=== PATIENT | male | born 1955 | race Two or more races ===

== ENCOUNTER 2024-08-24 14:13 | Emergency (ER) | payer OTHER ==
[~2024-08-24] VITALS: Ht 167.6 cm; Wt 75.3 kg
[2024-08-24 15:09] VITALS: BP 140/77; O2SAT 99
[2024-08-24] MEDS ORDERED: DIPHENHYDRAMINE HCL 50 MG/ML VIAL 1ML IM ONE (16:30)
[2024-08-24] MEDS ORDERED: METHYLPREDNISOLONE SOD SUCC 125 MG VIAL IM ONE (16:30)
[2024-08-24 16:51] LABS: HEMATOCRIT 45.4 % (39.0-48.0); HEMOGLOBIN 15.5 g/dL (13-16.00); MEAN CELL VOLUME 87.3 fL (80.0-100.00); MEAN CORPUSCULAR HEMOGLOBIN 29.8 pg (27.00-32.0); MEAN CORPUSCULAR HGB CONC 34.1 g/dl (32.0-36.0); PLATELET COUNT 134 K/uL (150-450); RED CELL DISTRIBUTION WIDTH 14.4 % (11.5-14.5)
== END 2024-08-24 19:02 | disposition home or self-care (01) ==
LOC: ER 14:15
PROVIDERS: Nurse Practitioner Family
DX: B34.9 Viral infection, unspecified (principal); R21 Rash and other nonspecific skin eruption; Z20.822 Contact with and (suspected) exposure to COVID-19; Z91.011 Allergy to milk products
CPT/HCPCS: 36415; 96372; 99282; J1200; J3490